=== PATIENT | female | born 1960 | race Caucasian/White ===

== ENCOUNTER 2025-04-20 12:09 | Emergency (ER) | payer MEDICAID ==
[~2025-04-20] VITALS: Ht 152.4 cm; Wt 68.0 kg
[2025-04-20 12:11] VITALS: BP 117/90; PULSE 84; RESP 18; TEMP 36.9; O2SAT 100
== END 2025-04-20 15:48 | disposition left against medical advice (07) ==
LOC: ER 12:09
DX: R53.1 Weakness (principal); E78.00 Pure hypercholesterolemia, unspecified; Z53.21 Procedure and treatment not carried out due to patient leaving prior to being seen by health care provider